=== PATIENT | female | born 1955 | race Hispanic/Latino ===

== ENCOUNTER 2020-10-12 12:50 | Emergency (ER) | payer BC, MEDICARE ==
[~2020-10-12] VITALS: Ht 149.9 cm; Wt 72.6 kg
[~2020-10-12 12:50] MED LIST: BACTRIM DS1 EA PO; HYDROCODONE-AP1 EAC1 PO; Z.0.ANASTROZOLE1 MG PO; Z.0.CLINDAMYCIN HC30 PO; Z.0.CYCLOBENZAPRINE1 PO; Z.0.EVISTA60 MG PO; Z.1.DIOVAN HCT 1601 PO
[2020-10-12] MEDS ORDERED: ONDANSETRON HCL INJ 2MG/ML 2ML 2 MG/ML VIAL IV STA (13:30)
[2020-10-12] MEDS ORDERED: SODIUM CHLORIDE 0.9% 1000ML 1,000 ML IV SCH (13:30)
[2020-10-12] MEDS ORDERED: SODIUM CHLORIDE 0.9% 1000ML 1,000 ML ONE (13:51)
[2020-10-12] MEDS ORDERED: ONDANSETRON HCL INJ 2MG/ML 2ML 2 MG/ML VIAL ONE (13:51)
[2020-10-12] MEDS ORDERED: SODIUM CHLORIDE 0.9% 50ML 50 ML ONE (14:10)
[2020-10-12] MEDS ORDERED: IOPAMIDOL 370 MG/ML 200 ML INFUS..BTL INJ ONE (14:10)
[2020-10-12] MEDS ORDERED: CIPRO500 MG PO (15:57)
[2020-10-12] MEDS ORDERED: PROMETHAZINE HC25 M1 PO (15:58)
[2020-10-12] MEDS ORDERED: DICYCLOMINE HCL20 MG PO (16:00)
== END 2020-10-12 16:11 | disposition home or self-care (01) ==
LOC: FSED 13:23
DX: R11.2 Nausea with vomiting, unspecified (principal); K52.9 Noninfective gastroenteritis and colitis, unspecified; E86.0 Dehydration; E27.9 Disorder of adrenal gland, unspecified; I10 Essential (primary) hypertension; K76.0 Fatty (change of) liver, not elsewhere classified
CPT/HCPCS: 74177; 80048; 80076; 81003; 82553; 84484; 85025; 96374; 99284; J2405; J7030; Q9967

== ENCOUNTER 2024-07-17 14:02 | Emergency (ER) | payer MEDICARE ==
[~2024-07-17] VITALS: Ht 149.9 cm; Wt 67.6 kg
[~2024-07-17 14:02] MED LIST changes: +AZITHROMYCIN250 MG PO; +CIPRO500 MG PO; +DICYCLOMINE HCL20 MG PO; +PREDNISONE20 MG PO; +PROMETHAZINE HC25 M1 PO; +VENTOLIN HFA18 GM INH
[2024-07-17] MEDS: FAMOTIDINE 20 MG/2 ML VIAL IV ONE (15:27)
[2024-07-17] MEDS: ONDANSETRON HCL INJ 2MG/ML 2ML 2 MG/ML VIAL IV ONE (15:27)
[2024-07-17] MEDS: LACTATED RINGER'S 1,000 ML INJ ONE (15:27)
[2024-07-17] MEDS ORDERED: METFORMIN HCL500 MG PO (16:02)
[2024-07-17] MEDS ORDERED: PROTONIX20 MG PO (16:02)
[2024-07-17] MEDS ORDERED: BUPROPION XL150 MG PO (16:02)
[2024-07-17] MEDS ORDERED: ARICEPT5 MG PO (16:02)
[2024-07-17] MEDS ORDERED: SIMVASTATIN20 MG PO (16:02)
[2024-07-17] MEDS ORDERED: ONDANSETRON ODT4 MG PO (16:33)
[2024-07-17] MEDS ORDERED: FAMOTIDINE20 MG PO (16:33)
[2024-07-17 16:47] VITALS: PULSE 80; RESP 16; TEMP 97.8; O2SAT 97
== END 2024-07-17 16:47 | disposition home or self-care (01) ==
LOC: FSED 14:16
DX: R11.2 Nausea with vomiting, unspecified (principal); B34.9 Viral infection, unspecified; R53.81 Other malaise; R53.83 Other fatigue; Z11.52 Encounter for screening for COVID-19
CPT/HCPCS: 0223U; 80053; 81003; 83880; 84484; 85025; 85379; 87400; 93005; 96374; 96375; 99284; J2405; J7121